=== PATIENT | male | born 1955 | race Caucasian/White ===

== ENCOUNTER → 2018-08-08 | Outpatient (CLI) | payer OTHER ==
[~2018-08-08] VITALS: Ht 193 cm; Wt 98.1 kg
[~2018-08-08] MED LIST: ALEVE220 MG PO; ALLEGRA ALLERG180 MG PO; ASPIRIN EC81 M1 PO; ASPIRIN325 PO; BIOTIN5 MG PO; CIALIS20 MG PO; CIPRO500 MG PO; COLACE100 MG PO; DULCOLAX5 MG PO; FISH OIL 1,001000 M2 PO; FLONASE16 GM NASAL; FLOVENT HFA10.6 GM INH; LANSOPRAZOLE30 MG PO; LIVALO2 MG PO; MEDROLDOSEPACK PO; PROBIOTIC1 EAC1 PO; PROPECIA PO; PROPECIA1 MG PO
--- NOTE | ~2018-08-08 | HPC ---
[facility] [place] [address] PAIN MANAGEMENT CONSULTATION Name: LISAERASTO MONTALVO Room #: REG ZULY Dawood#: [id number] Admission: 08/08/18 Attend Phys: Julieth Frazier MD Discharge: Date of : 59 Report #: [id number] THIS REPORT FOR: //name// CC: Choco Frazier DATE OF SERVICE: 08/08/2018 FOLLOWUP COMPLAINT: Occipital neck pain. FOLLOWUP HISTORY: The patient is a 63-year-old gentleman who has been seen in the Pain Clinic because of pain and discomfort. The patient states that he continues to have some pain and discomfort involving the left side of his head. He works from home. He uses phone quite a bit. He places the phone on his left side and tilts his head to the left shoulder area. He does this in an effort to hold the phone up without using his hands. He has noted worsening of pain and discomfort on the left side of his head. He notes that there is some pain that is radiating down into his arms. The occipital area is most uncomfortable. He has noticed an increased amount of pain with palpation and pressure in the occipital area. He has tried nonsteroidal anti-inflammatory medications. They have not really been very helpful. He describes his discomfort is constant, aching and gnawing discomfort. He notes that the pain is in the occipital area and radiates down into the area of his left shoulder. He has returned today for an injection in the affected area. ALLERGIES: MORPHINE, SIMVASTATIN. MEDICATIONS: Aspirin 81 mg, Dulcolax 5 mg, biotin 5 mg, Naprosyn 220 mg q. 8 hours p.r.n., Cialis 20 mg p.r.n., probiotic, lactobacillus acidophilus, finasteride 1 mg, Flonase nasal spray 2 sprays p.r.n., Jasmin 180 mg nasal congestion, lansoprazole 30 mg gastric reflux, calcium, Livalo 2 mg. PAIN CLINIC/PQRS: 1. History of osteoarthritis. The patient is not being treated for osteoarthritis or rheumatoid arthritis. 2. Height 6 feet 4 inches, weight 216 pounds, BMI is 26.3. 3. Vital signs: Blood pressure 140/88, pulse 74, respiratory rate 14, room air saturation 97%. 4. Pain intensity 4-5/10. 5. Fall history. The patient has not fallen in the last 3 months. 6. Blood thinner. The patient is not on a blood thinning medication. 7. Hypertension. The patient is not being treated for hypertension. 8. Opioid therapy greater than 6 weeks. The patient is not receiving opioids on a regular basis. 9. Risk assessment tool, low for use of opioids. 10. Functional assessment tool, [place] [address] PAIN MANAGEMENT CONSULTATION Name: GONZALEZERASTO KATIA [facility] [id number] Admission: 08/08/18 Attend Phys: Julieth Frazier MD Discharge: Date of : 59 Report #: [id number] 11. Recreational drug use. The patient denies use of recreational drug use. 12. Tobacco: The patient has never smoked. 13. Alcohol: The patient occasionally drinks alcoholic beverages. PHYSICAL EXAMINATION: GENERAL: The patient is a well-developed, well-nourished white male. Appears his stated age. He is alert and oriented x 3. His affect is appropriate. Speech is fluent. HEENT: Normocephalic, atraumatic. Extraocular eye muscles intact. Sclerae nonicteric. Mucous membranes are moist. The patient has some decreased hearing on the right side. He has ringing in his right ear. NECK: Without JVD or adenopathy. Good range of motion. The patient has some soreness in the left occipital area. Palpation in this area causes some recurrence of his pain and discomfort. Palpation in the area of the left levator scapula is somewhat sore as well. Muscle strength is judged to be 5/5 for the upper muscle groups. Deep tendon reflexes are +2 at the biceps, trace for the brachioradialis, and absent for triceps. LUNGS: Clear to auscultation without rhonchi or rales. HEART: Without murmur. S1, S2. ABDOMEN: Nontender, without organomegaly. Bowel sounds present. MUSCULOSKELETAL: The patient without significant scoliosis, kyphosis, or lordosis. Lower extremity muscle strength is judged to be 5/5 for the major muscle groups. Jarett's sign is negative. The patient is able to stand on his heels, walk on his toes. Left and right lateral bending, left and right lateral rotation, left and right extension were not problematic. Sensory in the lower extremities within normal limits. IMPRESSION: 1. Occipital neuralgia status post bending the neck to the left and raising the shoulder to hold a cell phone in place between his ear without use of his hands. 21. Hypercholesterolemia. 3. Iron deficiency anemia. 4. Allergic rhinitis. 5. Atopic dermatitis. 6. Chronic kidney disease stage 2. 7. Gastroesophageal reflux disease. 8. Hearing loss/tinnitus. 9. Orchialgia. RECOMMENDATIONS: We discussed treatment options with the patient. He has returned to the Pain Clinic for an injection to the affected area. Risks and benefits of an occipital block were discussed. They include but are not limited to infection, increased muscle soreness, worsening of pain, no improvement in pain, seizure. The patient elects to proceed. PROCEDURE NOTE: The patient was placed in the prone position. His neck was [facility] [address] [place] [address] PAIN MANAGEMENT CONSULTATION Name: ERASTO GONZALEZ Room #: REG [facility].#: [id number] Admission: 08/08/18 Attend Phys: Julieth Frazier MD Discharge: Date of : 59 Report #: [id number] sterilely prepped with a chlorhexidine solution. The left occipital area was identified. Palpation in the area of the left greater occipital nerve was identified. The patient states this is where his pain originated from. A 25-gauge needle was then advanced into the area of discomfort. A total of 8 mL of 0.5% bupivacaine and 40 mg of triamcinolone was injected. The patient tolerated the procedure well. His pain decreased from 5 to 1 at the time of discharge. He will follow up in the future as needed. We would like to thank you for letting us participate in his care. We hope he continues to improve. <ELECTRONICALLY SIGNED> By: Julieth Frazier MD 08/25/18 1124 [id number] Julieth Frazier MD /nt
[2018-08-08 14:21] VITALS: BP 140/88
== END | disposition home or self-care (01) ==
LOC: PAIN 10:03
DX: M54.81 Occipital neuralgia (principal); E78.00 Pure hypercholesterolemia, unspecified; D50.9 Iron deficiency anemia, unspecified; N18.2 Chronic kidney disease, stage 2 (mild); K21.9 Gastro-esophageal reflux disease without esophagitis; Z98.890 Other specified postprocedural states; Z79.899 Other long term (current) drug therapy; Z88.6 Allergy status to analgesic agent; Z79.82 Long term (current) use of aspirin

== ENCOUNTER → 2018-08-27 | Outpatient (CLI) | payer OTHER ==
[~2018-08-27] VITALS: Ht 193 cm; Wt 98.3 kg
--- NOTE | ~2018-08-27 | HPC ---
[facility] [place] [address] PAIN MANAGEMENT CONSULTATION Name: ERASTO GONZALEZ Room #: REG Elvira Haddad.#: [id number] Admission: 08/27/18 Attend Phys: Julieth Frazier MD Discharge: Date of : 59 Report #: [id number] THIS REPORT FOR: //name// CC: Choco Frazier DATE OF SERVICE: 08/27/2018 FOLLOWUP HISTORY: Would like to undergo another occipital block. HISTORY OF PRESENT ILLNESS: The patient is a 63-year-old gentleman who has been followed in the pain clinic. The patient has pain and discomfort, which continues to be problematic in the left occipital area. He underwent an injection at the last visit. He noted greater than 90% benefit from that. He has noticed now that his pain has somewhat started to reoccur. It involves the left occipital area. Some areas of the left shoulder are problematic as well. He has had no complications from the procedure. No problems with infection. He would like to continue with the progress that he had from the first injection and would like to undergo another. ALLERGIES: MORPHINE, SIMVASTATIN. MEDICATIONS: Aspirin 81 mg, Dulcolax 5 mg, biotin 5 mg, Naprosyn 220 mg q.8 hours p.r.n., Cialis 200 mg p.r.n., probiotic, lactobacillus acidophilus, finasteride 1 mg, Flonase spray 2 sprays p.r.n., Jasmin 180 mg for nasal congestion, lansoprazole 30 mg for gastric reflux, calcium, and Livalo 2 mg. PAIN CLINIC ASSESSMENT/PQRS: 1. History of osteoarthritis. The patient is not being treated for osteoarthritis or rheumatoid arthritis. 2. Height 6 feet 4 inches, weight 216 pounds, BMI is 26.3. 3. Vital signs: Blood pressure 140/88, pulse 74, respiratory rate 14, room air saturation 97%. 4. Pain intensity 4-5/10. 5. Fall risk. The patient has not fallen in the last 3 months. 6. Blood thinner. The patient is not on a blood thinning medication. 7. Hypertension. The patient is not being treated for hypertension. 8. Opioid greater than 6 weeks. The patient is not receiving opioid medications from the pain clinic. 9. Risk assessment tool, zero/low for use of opioid medication. 10. Functional assessment tool, . 11. Recreational drug use: The patient denies. 12. Tobacco. The patient denies use of smoking. 13. Alcohol. The patient drinks alcoholic beverages infrequently. About 1-2 [place] [address] PAIN MANAGEMENT CONSULTATION Name: LISAERASTO MONTALVO Room #: REG [facility] NemesioJo Ann#: [id number] Admission: 08/27/18 Attend Phys: Julieth Frazier MD Discharge: Date of : 59 Report #: [id number] PHYSICAL EXAMINATION: GENERAL: The patient is a well-developed, well-nourished white male. Appears his stated age. He is alert and oriented x 3. His affect is appropriate. Speech is fluent. HEENT: Normocephalic, atraumatic. Extraocular eye muscles intact. Sclerae nonicteric. Mucous membranes are moist. The patient does have some decreased hearing on the right side. Notes some ringing in his right ear. The patient has some pain and discomfort in the left occipital area. NECK: Without JVD or adenopathy. Good range of motion. The patient has some soreness in the left occipital area. Palpation in this area reproduces pain and discomfort in the area of his occipital area as well as the levator scapula. LUNGS: Clear to auscultation without rhonchi or rales. HEART: Regular rate without murmur. S1, S2. ABDOMEN: Nontender, without organomegaly. Bowel sounds present. MUSCULOSKELETAL: Muscle strength in the upper extremity is judged to be 5/5 for the major muscle groups. Deep tendon reflexes were +2 for the biceps, trace for the brachioradialis, and absent for triceps. Without significant scoliosis, kyphosis, or lordosis. Lower extremity muscle strength is judged to be 5/5 for the major muscle groups. Left and right lateral bending are problematic. Sensory within lower extremities within normal limits. IMPRESSION: 1. Occipital neuralgia, status post left occipital injection with 100% improvement, now with some increase in pain, the patient would desires to have another injection. 2. Hypercholesterolemia. 3. Iron deficiency anemia. 4. Allergic rhinitis. 5. Atrophic dermatitis. 6. Chronic kidney disease, stage 2. 7. Gastroesophageal reflux. 8. Hearing loss/tinnitus. 9. Orchialgia. RECOMMENDATIONS: We discussed treatment options with the patient. At this juncture, he would like to proceed with another injection. Risks and benefits of the procedure were again reviewed. Possible complication of the procedure, which could include infection, increased muscle soreness, headache, worsening of headache, and no improvement in headache. The patient elects to proceed. The patient will return to the pain clinic at which time he will then undergo a left occipital injection to help quell his pain and discomfort. He claims greater than 90% improvement after the first injection. [address] [address] PAIN MANAGEMENT CONSULTATION Name: ERASTO GONZALEZ Room #: REG CLI Boo.#: [id number] Admission: 08/27/18 Attend Phys: Julieth Frazier MD Discharge: Date of : 59 Report #: [id number] We would like to thank you for letting us participate in his care. We hope he continues to improve. By: [id number] Julieth Frazier MD /cris
[2018-08-27 14:54] VITALS: BP 155/94
== END ==
LOC: PAIN 07:20
DX: M54.81 Occipital neuralgia (principal); D50.9 Iron deficiency anemia, unspecified; E78.00 Pure hypercholesterolemia, unspecified; J30.9 Allergic rhinitis, unspecified; N18.2 Chronic kidney disease, stage 2 (mild); K21.9 Gastro-esophageal reflux disease without esophagitis; L20.9 Atopic dermatitis, unspecified; H93.19 Tinnitus, unspecified ear; N50.819 Testicular pain, unspecified

== ENCOUNTER → 2018-08-29 | Outpatient (CLI) | payer OTHER ==
[~2018-08-29] VITALS: Ht 193 cm; Wt 97.6 kg
--- NOTE | ~2018-08-29 | HPC ---
[facility] [place] [address] PAIN MANAGEMENT CONSULTATION Name: ERASTO GONZALEZ Room #: REG DESTINIElvira Haddad.#: [id number] Admission: 08/29/18 Attend Phys: Julieth Frazier MD Discharge: Date of : 59 Report #: [id number] THIS REPORT FOR: //name// CC: Choco Frazier DATE OF SERVICE: 08/29/2018 HISTORY: The patient is a 63-year-old gentleman who has been followed in the pain clinic. He has problems with occipital pain. He has undergone injections in the occipital area in the past. Noted about 90% improvement in his headache. He has noted now that the pain returned. He has returned to the pain clinic for another injection. New continues to have the pain in the same area near the left occipital area. Palpation in this area does reproduce the pain and discomfort. He did not have any complication from the procedure at the last visit. He has returned today for another injection to the affected occipital area because of occipital neuralgia. ALLERGIES: MORPHINE AND SIMVASTATIN. MEDICATIONS: Aspirin 81 mg, Dulcolax 5 mg, biotin 5 mg, Naprosyn 220 mg q.8 hours, Cialis 20 mg p.r.n., probiotic, lactobacillus acidophilus, finasteride 1 mg, Flonase spray 2 p.r.n., Jasmin 180 mg for nasal congestion, Lansoprazole 30 mg for gastric referral reflux, calcium, Livalo 2 mg pain clinic. PAIN CLINIC/PQRS: 1. History of osteoarthritis. He is not being treated for osteoarthritis or rheumatoid arthritis. 2. Height 6 feet 4 inches, weight 215 pounds, BMI is 26.2. 3. Vital signs: Blood pressure is 126/80, pulse 74, respiratory rate 16, room air saturation 95%. 4. Pain intensity 02/18. 5. Fall risk. The patient has not fallen in the last 3 months. 6. Blood thinner. The patient is not on a blood thinning medication. 7. Hypertension. The patient is not being treated for hypertension. 8. Opioid therapy greater than 6 weeks. The patient is not on an opioid regimen. 9. Risk assessment tool 0/low for opioid use. 10. Functional assessment tool, . 11. Recreational drug use. The patient denies use of recreational drugs. 12. Tobacco: The patient has never smoked. 13. Alcohol. The patient drinks 1-2 alcoholic beverages weekly. PHYSICAL EXAMINATION: GENERAL: The patient is a well-developed, well-nourished white male. Appears his stated age. He is alert and oriented x 3. His affect is appropriate. [address] [address] PAIN MANAGEMENT CONSULTATION Name: GONZALEZ,ERASTO KATIA Room #: REG [facility]..#: [id number] Admission: 08/29/18 Attend Phys: Julieth Frazier MD Discharge: Date of : 59 Report #: [id number] Speech is fluent. HEENT: Normocephalic, atraumatic. Extraocular muscles intact. Sclerae nonicteric. Mucous membranes are moist. The patient has some decreased hearing on the right side. Has ringing in his right ear. NECK: Without JVD or adenopathy. Good range of motion. The patient has some soreness in the left occipital area. Palpation in this area does reproduce pain and discomfort. Notes some pain in the lateral portion of his temporal area. Also, has some pain and discomfort, the area of the levator scapula. Palpation of this muscle cause some discomfort. LUNGS: Clear to auscultation without rhonchi or rales. HEART: Regular rate. S1, S2. ABDOMEN: Nontender, without organomegaly. Bowel sounds present. MUSCULOSKELETAL: Without significant scoliosis, kyphosis, or lordosis. Muscle strength is judged to be 5/5 in the major muscle groups in the upper extremity, 5/5 for the major muscle groups in the lower extremity. IMPRESSION: 1. Occipital neuralgia status post bending and contorted his head to the left while talking on his cell phone for a number of months. 2. Hypercholesterolemia. 3. Iron deficiency anemia. 4. Allergic rhinitis. 5. Atopic dermatitis. 6. Chronic kidney disease stage 2. 7. Gastroesophageal reflux disease. 8. Hearing loss/tinnitus. 9. Orchialgia. RECOMMENDATIONS: We discussed treatment options with the patient. He has returned today for treatment. He noted an improvement of 90% after the last injection. He has returned and desires to undergo treatment at this point. We discussed possible complication of the procedure, which could include infection, worsening of pain, no improvement in pain, bleeding, and the patient elects to proceed. PROCEDURE NOTE: The patient was taken into the procedure area. He was placed in the prone position. His neck and occipital area on the left was sterilely prepped with a chlorhexidine solution and allowed to dry. The palpation reproduces pain and discomfort in the left occipital area. This area was then infiltrated with 0.5 bupivacaine 8 mL and 60 mg Depo-Medrol. The patient tolerated the procedure well. There were no complications. He remained for an appropriate amount of time. He will follow up in the future as needed. We [address] [address] PAIN MANAGEMENT CONSULTATION Name: ERASTO GONZALEZ Room #: REG CLI ShubhamJo AnnLeonel.#: [id number] Admission: 08/29/18 Attend Phys: Julieth Frazier MD Discharge: Date of : 59 Report #: [id number] would like to thank you for letting us participate in his care. The patient's pain was 0-1 at the time of discharge. By: [id number] Julieth Frazier MD /LIAM
[2018-08-29 08:56] VITALS: BP 126/80
== END | disposition home or self-care (01) ==
LOC: PAIN 06:47
DX: M54.81 Occipital neuralgia (principal); E78.00 Pure hypercholesterolemia, unspecified; D50.9 Iron deficiency anemia, unspecified; J30.9 Allergic rhinitis, unspecified; I12.9 Hypertensive chronic kidney disease with stage 1 through stage 4 chronic kidney disease, or unspecified chronic kidney disease; N18.2 Chronic kidney disease, stage 2 (mild); K21.9 Gastro-esophageal reflux disease without esophagitis; H91.90 Unspecified hearing loss, unspecified ear; N50.819 Testicular pain, unspecified; M19.90 Unspecified osteoarthritis, unspecified site; Z88.8 Allergy status to other drugs, medicaments and biological substances; Z79.82 Long term (current) use of aspirin; Z79.899 Other long term (current) drug therapy; Z98.890 Other specified postprocedural states

== ENCOUNTER → 2018-09-12 | Outpatient (CLI) | payer OTHER ==
[~2018-09-12] VITALS: Ht 193 cm; Wt 96.2 kg
[2018-09-12 14:22] VITALS: BP 127/89
== END | disposition home or self-care (01) ==
LOC: PAIN 06:50
DX: M79.18 Myalgia, other site (principal); Z79.82 Long term (current) use of aspirin; Z79.899 Other long term (current) drug therapy; Z88.6 Allergy status to analgesic agent

== ENCOUNTER → 2018-09-26 | Outpatient (CLI) | payer OTHER ==
[~2018-09-26] VITALS: Ht 193 cm; Wt 97.7 kg
--- NOTE | ~2018-09-26 | HPC ---
[facility] [place] [address] PAIN MANAGEMENT CONSULTATION Name: ERASTO GONZALEZ Room #: REG [facility]..#: [id number] Admission: 09/26/18 Attend Phys: Julieth Frazier MD Discharge: Date of : 59 Report #: [id number] THIS REPORT FOR: //name// CC: Choco Frazier DATE OF SERVICE: 09/26/2018 PRIMARY CARE PHYSICIAN: Choco Sanches MD FOLLOWUP HISTORY: The patient is a 63-year-old gentleman who is followed in the pain clinic. Continues to note improvement after the occipital injections. He notes his pain decreased to 0 after the injection. Gets over 90% improvement in his headaches. He has returned today indicating that his headache pain has returned. He rates it as a 4/10 in intensity when it is problematic. He has returned today with a desire to undergo another occipital nerve block in the left occipital area. Overall, he feels this is helpful. He had no complications. He has been reminded that the possibility of a block using Botox might be a longer lasting measure. ALLERGIES: MORPHINE, SIMVASTATIN. CURRENT MEDICATIONS: Aspirin 81 mg, Dulcolax 5 mg, biotin 5 mg, Naprosyn 220 mg q. 8 hours, Cialis 20 mg p.r.n., probiotic, Lactobacillus acidophilus, finasteride 1 mg, Flonase spray 2 p.r.n., Jasmin 180 mg for nasal congestion, lansoprazole 30 mg for gastric reflux, calcium, Livalo 2 mg. PAIN CLINIC ASSESSMENT/PQRS: 1. History of osteoarthritis. The patient is not being treated for osteoarthritis or rheumatoid arthritis. 2. Height 6 feet 4 inches, weight 215 pounds, BMI is 26. 3. Vital signs: Blood pressure 131/80, pulse 96, respiratory rate 14, room air saturation is 97%. 4. Pain intensity is 0-4. 5. Fall risk. The patient has not fallen in the last 3 months. 6. Blood thinner. The patient is not on blood thinning medication. 7. Hypertension. The patient has not been treated for hypertension. 8. Opioid greater than 6 weeks. The patient is not on an opioid regimen. 9. Risk assessment tool, low for use of opiates. 10. Functional assessment tool . 11. Recreational drug use. The patient denies use of recreational drugs. 12. Tobacco: The patient never smoked. 13. Alcohol. The patient drinks alcoholic beverages on occasion. PHYSICAL EXAMINATION: GENERAL: The patient is a well-developed, well-nourished white male. Appears [facility] [address] [place] [address] PAIN MANAGEMENT CONSULTATION Name: ERASTO GONZALEZ Room #: REG [facility] Nemesio.#: [id number] Admission: 09/26/18 Attend Phys: Julieth Frazier MD Discharge: Date of : 59 Report #: [id number] his stated age. He is alert and oriented x 3. His affect is appropriate. Speech is fluent. HEENT: Normocephalic, atraumatic. Extraocular eye muscles intact. Sclerae nonicteric. Mucous membranes are moist. The patient has pain and discomfort in the left occipital area. Has decreased hearing on the right side, has ringing in his ears on the right side. NECK: Without JVD or adenopathy. Good range of motion. The patient has some discomfort in the levator scapular area. Palpation in this area causes some discomfort. LUNGS: Clear to auscultation without rhonchi or rales. HEART: Regular rate. S1, S2. ABDOMEN: Nontender, without organomegaly. Bowel sounds present. MUSCULOSKELETAL: Without significant scoliosis, kyphosis or lordosis. Muscle strength is judged to be 5/5 for the major muscle groups in the upper extremity and lower extremity. IMPRESSION: 1. Left occipital neuralgia improves after occipital nerve blocks. The patient noted increased discomfort while keeping his head tilted to support a phone over a number of months. 2. Hypercholesterolemia. 3. Iron deficient and anemia. 4. Allergic rhinitis. 5. Atrophic dermatitis. 6. Chronic kidney disease stage 2. 7. Gastroesophageal reflux. 8. Hearing loss/tinnitus. 9. Orchialgia. RECOMMENDATIONS: We discussed treatment options with the patient. Risks and benefits of a nerve block were discussed. They could include but are not limited to infection, worsening of pain, no improvement in pain, bleeding and the patient elects to proceed. PROCEDURE NOTE: The patient was placed in the prone position. His neck was sterilely prepped with a chlorhexidine solution. The left greater occipital nerve area was identified. A 25-gauge needle was then advanced into the area of discomfort. Aspiration was negative. The patient did not complain of nerve pain with the injection. A total of 40 mg triamcinolone and 6 mL of 0.25% bupivacaine was injected. The patient tolerated the procedure well. His pain decreased to 0 at the time of discharge. He will follow up in the future as needed. [facility] [address] [place] [address] PAIN MANAGEMENT CONSULTATION Name: ERASTO GONZALEZ Room #: REG CLElvira Dawood#: [id number] Admission: 09/26/18 Attend Phys: Julieth Frazier MD Discharge: Date of : 59 Report #: [id number] We would like to thank you for letting us participate in his care. We hope he continues to improve. By: [id number] Julieth Frazier MD /LIAM
[2018-09-26 11:28] VITALS: BP 131/80
== END | disposition home or self-care (01) ==
LOC: PAIN 07:26
DX: M79.18 Myalgia, other site (principal); Z79.82 Long term (current) use of aspirin; Z79.899 Other long term (current) drug therapy; Z88.6 Allergy status to analgesic agent